=== PATIENT | female | born 2005 | race Two or more races ===

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

== ENCOUNTER → 2025-03-24 | Outpatient (CLI) | payer OTHER ==
[2025-03-24 17:56] LABS: HEMATOCRIT 40.4 % (36.0-47.0); HEMOGLOBIN 13.1 g/dl (12.0-15.5); MEAN CORPUSCULAR HEMOGLOBIN 29.6 pg (27.0-33.0); MEAN CORPUSCULAR HGB CONC 32.4 g/dl (32.0-36.5); MEAN CORPUSCULAR VOLUME 91.4 fl (80.0-96.0); PLATELET COUNT, AUTOMATED 179 10^3/uL (150-450); RED BLOOD COUNT 4.42 10^6/uL (4.00-5.40); WHITE BLOOD COUNT 8.6 10^3/uL (4.0-10.0)
[2025-03-24 18:24] LABS: HIV 1&2 SCREEN NEGATIVE (NEGATIVE)
[2025-03-24 18:33] LABS: HEPATITIS C VIRUS ABY INDEX 0.03 INDEX (<0.8)
[2025-03-24 18:39] LABS: Trichomonas vaginalis (AMP) NOT DETECTED (NEGATIVE)
[2025-03-24 19:02] LABS: GC DNA AMPLIFICATION NEGATIVE (NEGATIVE)
== END ==
LOC: M PLALAB 16:41
PROVIDERS: ATTEND Advanced Practice Midwife
DX: Z34.01 Encounter for supervision of normal first pregnancy, first trimester (principal)

== ENCOUNTER → 2025-03-24 | Outpatient (REF) | payer OTHER | LOC: M PLALAB 15:20 | PROVIDERS: ATTEND Advanced Practice Midwife | DX: Z34.01 Encounter for supervision of normal first pregnancy, first trimester (principal) ==

== ENCOUNTER → 2025-06-02 | Outpatient (CLI) | payer OTHER, SELFPAY ==
[~2025-06-02] MED LIST changes: +CEPH500C PO; +HYDR-3364 PO; -HYDR-4570 PO; +ONDA-282 PO
== END ==
LOC: M RAD 14:03
PROVIDERS: ATTEND Obstetrics & Gynecology
DX: Z34.82 Encounter for supervision of other normal pregnancy, second trimester (principal); Z3A.21 21 weeks gestation of pregnancy

== ENCOUNTER → 2025-06-28 | Outpatient (REF) | payer OTHER, SELFPAY | LOC: M LAB REF 11:46 | PROVIDERS: ATTEND Physician Assistant | DX: R30.0 Dysuria (principal) ==

== ENCOUNTER 2025-07-20 11:12 | Outpatient (CLI) | payer OTHER ==
[~2025-07-20] VITALS: Ht 154.9 cm; Wt 138.5 kg
[2025-07-20 11:34] VITALS: BP 109/59
[2025-07-20 12:02] LABS: AMORPHOUS SEDIMENT SMALL (NEGATIVE); APPEARANCE, URINE CLOUDY (CLEAR); BACTERIA, URINE AUTO 2+ (NEGATIVE); BILIRUBIN, URINE AUTO NEGATIVE (NEGATIVE); BLOOD, URINE BLOOD NEGATIVE (NEGATIVE); GLUCOSE, URINE (UA) AUTO NEGATIVE (NEGATIVE); KETONE, URINE AUTO NEGATIVE (NEGATIVE); LEUKOCYTE ESTERASE, URINE AUTO NEGATIVE (NEGATIVE); MUCUS, URINE SMALL (NEGATIVE); NITRITE, URINE AUTO NEGATIVE (NEGATIVE); PROTEIN, URINE AUTO 1+ mg/dL (NEGATIVE); RBC, URINE AUTO 29 /HPF (0-3); SPECIFIC GRAVITY URINE AUTO 1.019 (1.002-1.035); SQUAMOUS EPITHELIAL CELL UR AU 7 /HPF (0-6); UROBILINOGEN, URINE AUTO 0.2 mg/dL (0.0-2.0); WBC, URINE AUTO 4 /HPF (0-3)
== END 2025-07-20 12:29 | disposition home or self-care (01) ==
LOC: M LDO 11:12
PROVIDERS: ATTEND Advanced Practice Midwife
DX: O26.893 Other specified pregnancy related conditions, third trimester (principal); O99.213 Obesity complicating pregnancy, third trimester; O99.343 Other mental disorders complicating pregnancy, third trimester; R10.11 Right upper quadrant pain; E66.9 Obesity, unspecified; F41.9 Anxiety disorder, unspecified; F32.A Depression, unspecified; Z3A.28 28 weeks gestation of pregnancy
CPT/HCPCS: 59025; 81001; 87086; G0463

== ENCOUNTER 2025-07-28 11:42 | Outpatient (CLI) | payer OTHER ==
[~2025-07-28] VITALS: Ht 154.9 cm; Wt 138.8 kg
[2025-07-28 11:55] VITALS: BP 127/66; O2SAT 99
[2025-07-28] MEDS ORDERED: HOME MED LIST COMPLETE! XX SCH (12:10)
[2025-07-28] MEDS ORDERED: ONDA-282 PO (13:45)
[2025-07-28] MEDS: ONDANSETRON 4MG ORAL DISINTEGRATING TAB PO ONE (13:58)
[2025-07-28 14:28] LABS: AMORPHOUS SEDIMENT SMALL (NEGATIVE); APPEARANCE, URINE CLOUDY (CLEAR); BACTERIA, URINE AUTO NEGATIVE (NEGATIVE); BILIRUBIN, URINE AUTO NEGATIVE (NEGATIVE); BLOOD, URINE BLOOD NEGATIVE (NEGATIVE); GLUCOSE, URINE (UA) AUTO NEGATIVE (NEGATIVE); KETONE, URINE AUTO 1+ mg/dL (NEGATIVE); LEUKOCYTE ESTERASE, URINE AUTO 1+ (NEGATIVE); MUCUS, URINE SMALL (NEGATIVE); NITRITE, URINE AUTO NEGATIVE (NEGATIVE); PROTEIN, URINE AUTO 1+ mg/dL (NEGATIVE); RBC, URINE AUTO 1 /HPF (0-3); SPECIFIC GRAVITY URINE AUTO 1.028 (1.002-1.035); SQUAMOUS EPITHELIAL CELL UR AU 15 /HPF (0-6); UROBILINOGEN, URINE AUTO 0.2 mg/dL (0.0-2.0); WBC, URINE AUTO 15 /HPF (0-3)
[2025-07-28 17:28] LABS: GC DNA AMPLIFICATION NEGATIVE (NEGATIVE)
== END 2025-07-28 14:01 | disposition home or self-care (01) ==
LOC: M LDO 11:42
PROVIDERS: ATTEND Obstetrics & Gynecology
DX: O26.893 Other specified pregnancy related conditions, third trimester (principal); O21.8 Other vomiting complicating pregnancy; O99.213 Obesity complicating pregnancy, third trimester; O99.343 Other mental disorders complicating pregnancy, third trimester; R25.2 Cramp and spasm; E66.9 Obesity, unspecified; F41.8 Other specified anxiety disorders; Z3A.29 29 weeks gestation of pregnancy
CPT/HCPCS: 59025; 76815; 81001; 87810; 87850; G0463

== ENCOUNTER → 2025-07-30 | Outpatient (CLI) | payer OTHER | LOC: M PLALAB 14:22 | PROVIDERS: ATTEND Nurse Practitioner Family | DX: Z34.80 Encounter for supervision of other normal pregnancy, unspecified trimester (principal) ==

== ENCOUNTER → 2025-08-24 | Outpatient (CLI) | payer OTHER | LOC: M WHC 11:11 | PROVIDERS: ATTEND Advanced Practice Midwife | DX: O99.213 Obesity complicating pregnancy, third trimester (principal); Z3A.33 33 weeks gestation of pregnancy; O40.3XX0 Polyhydramnios, third trimester, not applicable or unspecified ==

== ENCOUNTER → 2025-09-09 | Outpatient (REF) | payer OTHER | LOC: M SFHCWAGY 12:56 | PROVIDERS: ATTEND Student in an Organized Health Care Education/Training Program | DX: Z36.85 Encounter for antenatal screening for Streptococcus B (principal); Z3A.35 35 weeks gestation of pregnancy ==

== ENCOUNTER 2025-09-14 08:38 | Outpatient (CLI) | payer OTHER ==
[~2025-09-14] VITALS: Ht 154.9 cm; Wt 146.5 kg
[2025-09-14 09:03] VITALS: BP 134/76
[2025-09-14] MEDS ORDERED: LANTINJ4 SC (10:14)
== END 2025-09-14 11:37 | disposition home or self-care (01) ==
LOC: M LDO 08:38
PROVIDERS: ATTEND Advanced Practice Midwife
DX: O36.8130 Decreased fetal movements, third trimester, not applicable or unspecified (principal); O24.414 Gestational diabetes mellitus in pregnancy, insulin controlled; O13.3 Gestational [pregnancy-induced] hypertension without significant proteinuria, third trimester; O99.213 Obesity complicating pregnancy, third trimester; E66.9 Obesity, unspecified; O40.3XX0 Polyhydramnios, third trimester, not applicable or unspecified; Z3A.36 36 weeks gestation of pregnancy
CPT/HCPCS: 59025; 76815; 76819; 76820; G0463

== ENCOUNTER 2025-09-17 13:03 | Inpatient (IN) | payer OTHER ==
[~2025-09-17] VITALS: Ht 154.9 cm; Wt 144.9 kg
[~2025-09-17 13:03] MED LIST changes: +LANTINJ4 SC
[2025-09-17] MEDS ORDERED: TUMS500C PO (13:31)
[2025-09-17] MEDS ORDERED: HOME MED LIST COMPLETE! XX SCH (13:35)
[2025-09-17 13:47] VITALS: BP 124/77
[2025-09-17 14:40] LABS: PLATELET COUNT, AUTOMATED 253 10^3/uL (150-450)
[2025-09-17 15:35] LABS: HIV 1&2 SCREEN NEGATIVE (NEGATIVE)
[2025-09-17] MEDS ORDERED: CARBOPROST TROMETHAMINE 250 MCG/ML AMP IM PRN (15:40)
[2025-09-17] MEDS ORDERED: LIDOCAINE 1% MDV 20 ML VIAL INFIL PRN (15:40)
[2025-09-17] MEDS ORDERED: TRANEXAMIC ACID INJection 1,000 MG in NS 100 ML IV PRN (15:40)
[2025-09-17 15:43] LABS: HEPATITIS C VIRUS ABY INDEX < 0.02 INDEX (<0.8)
[2025-09-17 15:59] VITALS: BP 116/72
[2025-09-17] MEDS: miSOPROStol 50 MCG 1/2 TABLET PO SCH (15:59)
[2025-09-17] MEDS ORDERED: GLUCAGON INJ 1 MG VIAL SC PRN (16:00)
[2025-09-17] MEDS ORDERED: DEXTROSE 50% 50 ML SYRINGE IV PRN (16:00)
[2025-09-17] MEDS ORDERED: GLUCOSE 4 GM CHEW PO PRN (16:00)
[2025-09-17 18:15] VITALS: BP 120/59
[2025-09-17 18:38] LABS: TOTAL PROTEIN,RANDOM URINE 62.8 MG/DL (0.0-14.0)
[2025-09-17] MEDS: INSULIN LISPRO (NovoLOG) PER UNIT SC SCH (20:02)
[2025-09-18] VITALS (32 sets, daily range): BP systolic 107–175; BP diastolic 55–96; O2SAT 97–99
[2025-09-18] MEDS: OXYTOCIN DRIP 30 UNITS in IV 1 EA IV SCH (04:07)
[2025-09-18] MEDS: LR 1,000 ML IV SCH (08:06)
[2025-09-18] MEDS ORDERED: NALOXONE INJ 0.4 MG/1 ML VIAL IV PRN ×3 (08:55→16:25)
[2025-09-18] MEDS ORDERED: diphenhydrAMINE 50 MG/ML VIAL IV PRN ×2 (08:55→16:25)
[2025-09-18] MEDS ORDERED: ONDANSETRON 4MG/2ML VIAL IV PRN ×2 (08:55→16:25)
[2025-09-18] MEDS ORDERED: EPIDURAL/PCA KEYS XX PRN (08:55)
[2025-09-18] MEDS ORDERED: LR 500 ML IV PRN (08:55)
[2025-09-18] MEDS: FENTANYL/ROPIVACAINE/NACL BAG 100 ML EPIDURAL SCH (09:39)
[2025-09-18] MEDS ORDERED: LIDOCAINE 2% W/EPINEPHrine 20 ML VIAL **PRES FREE As Ordered ONE (13:35)
[2025-09-18] MEDS ORDERED: KETOROLAC 30 MG/ML 1 ML VIAL As Ordered ONE (13:37)
[2025-09-18] MEDS ORDERED: ONDANSETRON 4MG/2ML VIAL As Ordered ONE (13:37)
[2025-09-18] MEDS ORDERED: ACETAMINOPHEN 1000MG/100ML IV BAG As Ordered ONE (13:37)
[2025-09-18] MEDS ORDERED: MORPHINE PRES-FREE INJ 10 MG/10 ML VIAL As Ordered ONE (13:40)
[2025-09-18] MEDS ORDERED: OXYTOCIN 30UNITS IN 0.9% NaCl 500ML IV BAG IV ONE (13:46)
[2025-09-18] MEDS: AZITHROMYCIN INJ 500 MG, VIAL MATE ADAPTER 1 EACH in NS 250 ML IV ONE (14:17)
[2025-09-18] MEDS: BICITRA 30 ML SOLN UDC PO ONE (14:17)
[2025-09-18] MEDS: ceFAZolin SODIUM 3 GM in DEXTROSE 5% (D5W) MINI-BAG PLU 100 ML IV ONE (14:18)
[2025-09-18] MEDS ORDERED: PHENYLephrine 500MCG 5ML (100MCG/ML) SYRINGE As Ordered ONE (15:06)
[2025-09-18] MEDS ORDERED: MIDAZOLAM INJ 2 MG/2 ML VIAL As Ordered ONE (15:09)
[2025-09-18] MEDS ORDERED: LABETALOL 100 MG/20 ML VIAL As Ordered ONE (15:14)
[2025-09-18 15:29] LABS: CORD GAS ABE A -3.3; CORD GAS ABE V -1.8; CORD GAS HCO3 A 24.6 MMOL/L; CORD GAS HCO3 V 24.8 MMOL/L; CORD GAS O2 SAT A 27.6 %; CORD GAS O2 SAT V 46.5 %; CORD GAS PCO2 A 55.0 mmHg; CORD GAS PCO2 V 48.2 mmHg; CORD GAS PH A 7.269 UNITS; CORD GAS PH V 7.329 UNITS; CORD GAS PO2 A 15.0 mmHg; CORD GAS PO2 V 20.1 mmHg; CORD GAS SBC A 19.9 MMOL/L; CORD GAS SBC V 21.6 MMOL/L; CORD GAS TCO2 A 26.3 MMOL/L; CORD GAS TCO2 V 26.3 MMOL/L
[2025-09-18] MEDS: KETOROLAC 30 MG/ML 1 ML VIAL IV SCH (15:30)
[2025-09-18] MEDS ORDERED: MOM 30 ML SUSPENSION UDC PO PRN (15:30)
[2025-09-18] MEDS: OXYTOCIN DRIP 30 UNITS in IV 1 EA IV PRN (16:17)
[2025-09-18] MEDS ORDERED: HYDROMORPHONE HCL 0.5 MG/0.5 ML SYRINGE IV PRN (16:25)
[2025-09-18] MEDS ORDERED: MEPERIDINE 25 MG/ML 1 ML VIAL IV PRN (16:25)
[2025-09-18] MEDS: SLF 3 ML SYR IV SCH (16:25)
[2025-09-18] MEDS ORDERED: **NOTE PATIENT COMMENT** MISC XX SCH (16:25)
[2025-09-18] MEDS: SIMETHICONE 80MG CHEW TAB PO PRN (20:10)
[2025-09-19 01:30] VITALS: BP 116/60; O2SAT 98
[2025-09-19] MEDS: RHOGAM 300MCG (1500IU) INJ IM SCH (05:52)
[2025-09-19 06:23] VITALS: BP 127/67; O2SAT 99
[2025-09-19 07:35] LABS: PLATELET COUNT, AUTOMATED 199 10^3/uL (150-450)
[2025-09-19] MEDS: PRENATAL VITAMINS CHEWABLE TABLET PO SCH (08:14)
[2025-09-19 10:00] VITALS: BP 125/82; O2SAT 99
[2025-09-19 14:00] VITALS: BP 124/69; O2SAT 99
[2025-09-19] MEDS: IBUPROFEN 800 MG TAB PO SCH (17:21)
[2025-09-19 22:00] VITALS: BP 96/51; O2SAT 99
[2025-09-20 02:00] VITALS: BP 98/76; O2SAT 100
[2025-09-20 06:00] VITALS: BP 108/69; O2SAT 100
[2025-09-20] MEDS: FERROUS SULFATE 325 MG TAB PO SCH (08:05)
[2025-09-20 08:31] VITALS: BP 108/69; TEMP 97.8; O2SAT 100
[2025-09-20] MEDS ORDERED: MEASLES,MUMPS,RUBELLA VACCINE INJ (MMR-II) SC.IMMUN ONE (09:00)
[2025-09-20] MEDS ORDERED: OXYC1TAB23 PO (13:37)
[2025-09-20] MEDS ORDERED: IBUP80TA PO (13:37)
== END 2025-09-20 14:23 | disposition home or self-care (01) | DRG 540 ==
LOC: M LDO 13:03 → M LDI 13:30 → M OBS 09-18 17:45
PROVIDERS: ADMIT Obstetrics & Gynecology; ATTEND Obstetrics & Gynecology
PROC: 3E0P7GC Introduction of Other Therapeutic Substance into Female Reproductive, Via Natural or Artificial Opening (ICD-10-PCS; 2025-09-17)
PROC: 10D00Z1 Extraction of Products of Conception, Low, Open Approach (ICD-10-PCS; principal; 2025-09-18 14:30)
DX: O40.3XX0 Polyhydramnios, third trimester, not applicable or unspecified (principal); E66.01 Morbid (severe) obesity due to excess calories; O24.429 Gestational diabetes mellitus in childbirth, unspecified control; O99.214 Obesity complicating childbirth; O13.4 Gestational [pregnancy-induced] hypertension without significant proteinuria, complicating childbirth; Z3A.37 37 weeks gestation of pregnancy; O76 Abnormality in fetal heart rate and rhythm complicating labor and delivery; Z37.0 Single live birth

== ENCOUNTER 2025-09-27 12:02 | Emergency (ER) | payer OTHER ==
[~2025-09-27] VITALS: Ht 154.9 cm; Wt 138.4 kg
[~2025-09-27 12:02] MED LIST changes: +IBUP80TA PO; +OXYC1TAB23 PO; +TUMS500C PO
[2025-09-27 13:07] VITALS: BP 146/79; TEMP 97.7; O2SAT 100
== END 2025-09-27 13:10 | disposition home or self-care (01) ==
LOC: M ED 12:02
DX: Z48.817 Encounter for surgical aftercare following surgery on the skin and subcutaneous tissue (principal); Z79.1 Long term (current) use of non-steroidal anti-inflammatories (NSAID); Z79.899 Other long term (current) drug therapy